=== PATIENT | male | born 1960 | race Caucasian/White ===

== ENCOUNTER 2016-10-05 15:16 | Observation (INO) | payer MEDICARE, BC ==
--- NOTE | ~2016-10-05 | OP ---
Record Of Operation [facility] [address] [place]. [address] NAME: GABINO ANGUIANO : 62 STATUS : ADM IN PAT#: [id number] AGE: 55 ADM/REG DATE : 10/05/16 MR#: [id number] REPORT SERV DATE: 10/05/16 DICTATED BY: DHAVAL GRAJEDA DATE: 10/05/16 REPORT STATUS : Draft TRANSCRIBED BY: MODL DATE: 10/05/16 DATE OF PROCEDURE: 10/05/2016 PREOPERATIVE DIAGNOSIS: Clotted left arm arteriovenous fistula. POSTOPERATIVE DIAGNOSIS: Clotted left arm arteriovenous fistula. PROCEDURE: 1. Thrombectomy left arm arteriovenous fistula. 2. Fistulogram. 3. Angioplasty with stent placement to subclavian vein on the left. SURGEON: Dhaval Grajeda M.D. ESTHETICIAN FACIALIST: Brittney. ANESTHESIA: Local with sedation. COMPLICATIONS: None. BLOOD LOSS: 500. HISTORY: The patient is a 55-year-old male with a left brachiobasilic fistula. He underwent revision yesterday with proximalization of the inflow. This was noted to be thrombosed today. The plan is for thrombectomy and intervention as needed. I discussed in detail with the patient and , they expressed understanding and desired to proceed. DESCRIPTION OF PROCEDURE: The patient was taken to the operating up room and placed in the supine position. He was given IV sedation without complication. The left arm was prepped and draped in sterile fashion. 1% lidocaine was infiltrated in the skin and subcutaneous tissues overlying the fistula in the mid upper arm. It was accessed with a micropuncture needle and wire passed easily. The needle was removed. Micropuncture sheath placed. Fistulogram was performed shows a fistula with clot. So, the best option would be open thrombectomy. Attention was turned to the distal incision from yesterday. This was reopened after injecting 1% lidocaine in skin and subcutaneous tissues. The vein was freed circumferentially and isolated a vessel loop. The graft was controlled with a clamp. The patient was given 5000 units of heparin intravenously. We received another 2000 units after one hour. An 11 blade was used to create a venotomy in the basilic vein. A large amount of thrombus was milked from the basilic vein. Fistulogram was performed through the sheath and it shows residual thrombus proximally. A 4- and 5-Shelia were attempted to pass through the subclavian vein and thrombectomy performed multiple times, however, repeat venogram showed residual thrombus. An 8-Honduran sheath was placed and a 10 x 40 balloon used to angioplasty the subclavian vein that was with stenosis which had been treated the day before as well. Repeat thrombectomy was performed, however, venogram once again showed residual thrombus. It was felt a more proximal access to be beneficial and the proximal incision in the axilla was opened after injecting 1% lidocaine in skin and subcutaneous tissues. Record Of Operation [facility] [address] [place]. [address] NAME: GABINO ANGUIANO : 62 STATUS : ADM IN PAT#: [id number] AGE: 55 ADM/REG DATE : 10/05/16 MR#: [id number] REPORT SERV DATE: 10/05/16 DICTATED BY: DHAVAL GRAJEDA DATE: 10/05/16 REPORT STATUS : Draft TRANSCRIBED BY: [email or web address] DATE: 10/05/16 Dissection was performed. I identified the fistula which was freed circumferentially, isolated a vessel loop, an 11 blade was used to create a venotomy. From this location, an over the wire 5-Shelia was used to thrombectomize the subclavian vein. With multiple passes, large amounts of thrombus were removed. Pulsatile inflow restored. Venogram was performed which shows the subclavian vein to be patent without thrombus, but with stenosis. Attention was turned to the graft at the distal incision. A 4-Shelia was passed through the graft removing a large amount of thrombus restoring pulsatile inflow. The 8-Honduran sheath was placed here and fistulogram here shows the graft, anastomosis, and axillary artery to be patent. The venotomies and both incisions were closed with running 6-0 Prolene suture and flow restored. There was pulsatile flow noted. Fistulogram through the micropuncture sheath shows residual stenosis at the subclavian vein. A wire was placed, the sheath was exchanged for the 8-Honduran sheath. A 14 x 40 mm self-expanding stent was deployed at the subclavian vein stenosis. This was post angioplastied with a 14 mm balloon. Post fistulogram now shows the subclavian vein to be widely patent as is the fistula. There was excellent thrill in the fistula. The access was removed and closed with a 4-0 Monocryl suture. The graft was accessed with a micropuncture needle in an antegrade fashion and fistulogram performed showing the graft and anastomosis with the vein to be patent. The needle was removed and pressure held and hemostasis achieved. The incision was then closed with Vicryl suture, followed by Monocryl suture, and sterile dressing applied. The patient tolerated the procedure well. He will be taken to recovery in stable condition. ROMARIO/MOOK Dhaval Grajeda M.D. / [id number] CC: Breanna Ledesma M.D.
[~2016-10-05 15:16] MED LIST: ARANESP IV; COZAAR100 MG PO; DIALYVITE PO; FLORINEF0.1 MG PO; FOSRENOL1000 MG PO; INSNOVR SC; LANTUS SC; LEVAQUIN5T PO; NEUR100 PO; NEUR300 PO; NORCO1 TA1 PO; NORV10 PO; NORV5 PO; NOVOLOG SC; PHOSLO PO; PR12.5 PO; PR25 PO; REFRES1 OPH; RENVELA2.4 GM PO; ROCALTROL0.25 MCG PO; SENSIPAR30 MG OR; TUMS PO; VANCO1P IV; ZANTAC150 MG PO; [UNRECOGNIZED DRUG - REMARK]
[2016-10-05 16:30] LABS: CALCIUM, SERUM 7.6 MG/DL (8.5-10.4); CHLORIDE, SERUM 105 MMOL/L (96-112); CO2 (CARBON DIOXIDE) 26 MMOL/L (24-34); POTASSIUM, SERUM 4.8 MMOL/L (3.5-5.3); SODIUM, SERUM 137 MMOL/L (135-148)
[2016-10-05 16:31] LABS: BUN (BLOOD UREA NITROGEN) 28 MG/DL (6-23); CREATININE 8.77 MG/DL (0.70-1.30); GFR AFRICAN AMERICAN 7 ML/MIN (>=60); GFR NON AFRICAN AMERICAN 6 ML/MIN (>=60); GLUCOSE, SERUM 177 MG/DL (60-99)
[2016-10-06 06:08] LABS: BASOPHILS 0.4 %; BASOPHILS ABSOLUTE 0.02 10/3/uL (0.0-0.16); EOSINOPHILS 6.7 %; EOSINOPHILS ABSOLUTE 0.35 10/3/uL (0.0-0.53); IMMATURE GRANULOCYTES ABSOLUTE 0.05 10/3/uL (0.0-0.11); LYMPHOCYTES 25.7 %; LYMPHOCYTES ABSOLUTE 1.34 10/3/uL (0.67-4.30); MEAN CORPUS HGB CONC 33.7 g/dL (32.0-36.0); MEAN CORPUSCULAR HEMOGLOB 34.1 pg (26.0-34.0); MEAN CORPUSCULAR VOLUME 101.1 fL (80-100); MEAN PLATELET VOLUME 11.3 fL (9.2-13.0); MONOCYTES 7.7 %; NEUTROPHILS 58.5 %; NEUTROPHILS ABSOLUTE 3.06 10/3/uL (2.02-8.40); PLATELET COUNT 104 10/3/uL (150-400); RBC DISTRIBUTION WIDTH 16.4 % (12.0-16.0); WHITE BLOOD CELLS 5.2 10/3/uL (4.5-10.5)
[2016-10-06 06:12] LABS: HEMATOCRIT 26.7 % (40.0-51.0); MANUAL DIFF NO %; RED CELL COUNT 2.64 10/6/uL (4.7-6.1)
[2016-10-06 06:23] LABS: BUN (BLOOD UREA NITROGEN) 30 MG/DL (6-23); CALCIUM, SERUM 7.7 MG/DL (8.5-10.4); CHLORIDE, SERUM 107 MMOL/L (96-112); CO2 (CARBON DIOXIDE) 26 MMOL/L (24-34); POTASSIUM, SERUM 4.9 MMOL/L (3.5-5.3); SODIUM, SERUM 141 MMOL/L (135-148)
[2016-10-06 06:24] LABS: ALBUMIN 2.9 G/DL (3.5-5.0); CREATININE 9.34 MG/DL (0.70-1.30); GFR AFRICAN AMERICAN 7 ML/MIN (>=60); GFR NON AFRICAN AMERICAN 6 ML/MIN (>=60); GLUCOSE, SERUM 111 MG/DL (60-99); PHOSPHORUS, SERUM 6.5 MG/DL (2.5-4.5)
[2016-10-06] MEDS ORDERED: PCET PO (11:10)
== END 2016-10-06 13:52 | disposition home or self-care (01) ==
LOC: SDC 15:16 → 2SO 20:41
PROVIDERS: Surgery
PROC: 05CC0ZZ Extirpation of Matter from Left Basilic Vein, Open Approach (ICD-10-PCS; principal; 2016-10-05 16:00)
PROC: 02703ZZ Dilation of Coronary Artery, One Artery, Percutaneous Approach (ICD-10-PCS; 2016-10-05 16:00)
PROC: B51WYZZ Fluoroscopy of Dialysis Shunt/Fistula using Other Contrast (ICD-10-PCS; 2016-10-05 16:00)
DX: T82.590A Other mechanical complication of surgically created arteriovenous fistula, initial encounter (principal); I12.0 Hypertensive chronic kidney disease with stage 5 chronic kidney disease or end stage renal disease; E11.22 Type 2 diabetes mellitus with diabetic chronic kidney disease; N18.6 End stage renal disease; E11.40 Type 2 diabetes mellitus with diabetic neuropathy, unspecified; K50.90 Crohn's disease, unspecified, without complications; Z99.2 Dependence on renal dialysis; Z88.1 Allergy status to other antibiotic agents; Z91.040 Latex allergy status; Z79.4 Long term (current) use of insulin; Z79.899 Other long term (current) drug therapy
CPT/HCPCS: 36831; 36908; 80048; 80069; 82962; 85025; 96372; A9270-GY; C1725; C1757; C1769; C1876; C1894; G0378; J0690; J2250; Q9967